=== PATIENT | female | born 1950 | race Caucasian/White ===

== ENCOUNTER 2016-04-09 09:11 | Emergency (ER) | payer BC ==
--- NOTE | 2016-04-09 09:29 | Emergency Department Record ---
History of Present Illness - General Chief Complaint: Confusion Stated Complaint: CONFUSION Time Seen by Provider: 04/09/16 09:22 Source: Patient, Family Mode of Arrival: Ambulatory Limitations: No limitations - History of Present Illness Initial Comments: 65 yo female presents with confusion that was noticed at work about 8:30am by the patient's on. 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 She has no recall of these conversations. No speech changes. No fever. No falls. No history of similar episodes in the past. She is unable to recall the date or her family doctor. Onset/Timin -: Minutes(s) Severity: Mild Consistency: Intermittent Associated Symptoms: Denies other symptoms - Outing Coma Scale Eye Response: (4) Open spontaneously Motor Response: (6) Obeys commands Verbal Response: (5) Oriented Kelsea Total: 15 - Symptoms of Stroke Onset of Symptoms Date: 04/09/16 Onset of Symptoms Time: 08:30 Symptom Onset Unknown: No Symptoms of stroke: Onset of Confusion, Unable to Think Clearly - Related Data Home Medications Medication Instructions Recorded Confirmed Last Taken Cholecalciferol (Vitamin D3) 2,000 unit PO DAILY 06/17/14 04/09/16 08/01/14 [Vitamin D3] Multivitamin [Multi-Vitamin Daily] 1 each PO DAILY 06/17/14 04/09/16 08/02/14 Allergies Allergy/AdvReac Type Severity Reaction Status Date / Time No Known Drug Allergies Allergy Verified 04/09/16 09:24 Travel Screening - Travel/Exposure Within Last 30 Days Have you traveled within the last 30 days?: No Review of Systems Constitutional: Denies: Chills, Fever, Malaise, Night sweats, Weakness Eyes: Denies: Eye discharge, Eye pain, Photophobia, Vision change ENT: Denies: Congestion, Dental pain, Ear pain, Epistaxis, Throat pain Respiratory: Denies: Cough, Dyspnea, Hemoptysis, Stridor, Wheezes Cardiovascular: Denies: Chest pain, Palpitations, Syncope Endocrine: Denies: Fatigue Gastrointestinal: Denies: Abdominal pain, Diarrhea, Nausea, Vomiting Genitourinary: Denies: Dysuria, Retention, Urgency Musculoskeletal: Denies: Arthralgia, Back pain, Joint swelling, Myalgia, Neck pain Skin: Denies: Bruising, Change in color, Rash Neurological: Reports: Confusion. Denies: Abnormal gait, Headache, Numbness, Paresthesias, Seizure, Tingling, Tremors, Vertigo, Weakness Psychiatric: Denies: Anxiety Hematological/Lymphatic: Denies: Blood Clots, Easy bleeding, Easy bruising, Swollen glands Physical Exam - General General Appearance: Alert, Cooperative, No acute distress Limitations: Altered mental status - Head Head exam: Atraumatic, Normocephalic, Normal inspection - Eye Eye exam: Normal appearance, PERRL. negative: Conjunctival injection, Scleral icterus - ENT ENT exam: Normal exam, Mucous membranes moist, TM's normal bilaterally Ear exam: Normal external inspection. negative: External canal tenderness Nasal Exam: Normal inspection. negative: Discharge, Sinus tenderness Mouth exam: Normal external inspection, Tongue normal Teeth exam: Normal inspection. negative: Dental caries Throat exam: Normal inspection. negative: Tonsillar erythema, Tonsillar exudate - Neck Neck exam: Normal inspection, Full ROM. negative: Lymphadenopathy, Meningismus , Tenderness - Respiratory Respiratory exam: Normal lung sounds bilaterally. negative: Respiratory distress - Cardiovascular Cardiovascular Exam: Regular rate, Normal rhythm, Normal heart sounds Peripheral Pulses: 2+: Radial (R), Radial (L) - GI/Abdominal GI/Abdominal exam: Soft - Rectal Rectal exam: Deferred - exam: Deferred - Extremities Extremities exam: Normal inspection, Full ROM, Normal capillary refill. negative: Tenderness - Back Back exam: Reports: Normal inspection, Full ROM. Denies: Muscle spasm, Rash noted, Tenderness - Neurological Neurological exam: Alert, CN II-XII intact, Normal gait, Reflexes normal. negative: Motor sensory deficit, Oriented X3 (Oriented to name and hospial only. Not to time, date or year. Unable to guess) - Psychiatric Psychiatric exam: Normal affect, Normal mood. negative: Anxious, Depressed - Skin Skin exam: Dry, Intact, Normal color, Warm Stroke Assessment - NIH Stroke Scale 1a. Level of Consciousness: (0) Alert 1b. LOC Questions: (1) Answers 1 Question Correctly 1c. LOC Commands: (0) Performs Tasks Correctly 2. Best Gaze: (0) Normal 3. Visual: (0) No Visual Loss 4. Facial Palsy: (0) Normal Symmetrical Movement 5a. Motor Arm Left: (0) No Drift 5b. Motor Arm Right: (0) No Drift 6a. Motor Leg Left: (0) No Drift 6b. Motor Leg Right: (0) No Drift 7. Limb Ataxia: (0) Absent 8. Sensory: (0) Normal 9. Best Language: (0) No Aphasia 10. Dysarthria: (0) Normal 11. Extinction/Inattention: (0) No Abnormality NIH Stoke Scale Total: 1 NIH Stroke Scale Date: 04/09/16 NIH Stroke Scale Time: 09:28 Course Vital Signs 04/09/16 09:13 Temperature 97.7 F Pulse Rate 90 Respiratory 18 Rate Blood Pressure 156/77 Pulse Ox 99 - Reevaluation(s) Reevaluation #1: I rechecked the patient She could not recall 3 items I requested her to remember She did not recall meeting me or my examination. I was completely unfamiliar to her Her is now here. She recalls her , year they got . She does not recall breakfast that occurred at 5-5:30am She does not recall her morning conversion with her that occurred 5-5: 50am She does not recall her birthday but she recalls she was born in [place]. 04/09/16 09:40 Reevaluation #2: Recheck. No change in condition upon return from CT The patient is oriented to her name and but did not recall meeting me twice during this visit I SW the radiologist. No acute mass or hemorrhage. Mild small vessel disease. I explained that a neurology consult was recommended. [facility] was contacted. 04/09/16 09:56 Reevaluation #3: The labs were reviewed Sodium is 130. No acute changes. Dr Dowell is the stroke attending per [facility]. 04/09/16 10:00 Reevaluation #4: Dr Austin of the ED and Dr Dowell or stroke accept the patient for ED to ED transfer for emergency consult Dr Dowell recommends aspirin 04/09/16 10:04 Reevaluation #5: EKG 1001 NSR rate 71, intervals normal, axis normal, ST normal. improved from the prior. 04/09/16 10:10 ETOH is 0.000 04/09/16 10:12 Medical Decision Making - Lab Data Result diagrams: 04/09/16 09:30 04/09/16 09:30 Disposition Disposition: Transfer Clinical Impression: Acute confusion, Amnesia Disposition: Acute Care Hospital Transfer Transfer To: [facility] Reason For Transfer: Acute neurologic changes, amnesia Accepting Physician: Dr Dowell Time Discussed w/Accepting Physician: 10:00 Condition: (2) Stable Forms: Patient Portal Access Time of Disposition: 10:00
[2016-04-09 09:40] LABS: BASO % 0.6 % (0-6); EOS % 0.6 % (0-6); GRAN % 71.5 % (47-80); HEMATOCRIT 42.6 % (35.0-47.0); HEMOGLOBIN 14.6 gm/dl (11.6-16.0); LYMPH % 17.3 % (16-45); MEAN CELL VOLUME 87.8 fl (81-97); MEAN CORPUSCULAR HEMOGLOBIN 30.1 pg (27-33); MEAN CORPUSCULAR HGB CONC 34.3 g/dl (32-36); MEAN PLATELET VOLUME 9.1 fl (7.4-10.4); PLATELET COUNT 338 K/uL (130-400); RED BLOOD COUNT 4.85 M/uL (3.80-5.40); RED CELL DISTRIBUTION WIDTH 14.4 % (11.5-14.5); WHITE BLOOD COUNT W/O DIFF 4.7 K/uL (4.2-12.2)
[2016-04-09 09:52] LABS: ALB/GLOB RATIO 1.6 (1.1-1.8); ALBUMIN 4.5 gm/dL (3.5-5.0); ALKALINE PHOSPHATASE 30 U/L (38-126); ALT/SGPT 63 U/L (9-52); ANION GAP 12.2 (7-16); AST/SGOT 28 U/L (14-36); BILIRUBIN,TOTAL 0.48 mg/dL (0.2-1.3); BLOOD UREA NITROGEN 13 mg/dL (7-17); CARBON DIOXIDE 25.8 mmol/L (22-30); CREATININE 0.6 mg/dL (0.52-1.04); EST GLOMERULAR FILTRATION RATE > 60 ml/min; GLUCOSE,RANDOM 113 mg/dL (70-110); TOTAL PROTEIN 7.3 gm/dL (6.3-8.2)
[2016-04-09 09:53] LABS: INR 0.99; PARTIAL THROMBOPLASTIN TIME 28.2 SECONDS (24.5-39.1); PROTHROMBIN TIME (PATIENT) 11.2 SECONDS (9.5-12.1)
[2016-04-09] MEDS ORDERED: ASPIRIN 325 MG TABLET PO ONE (10:06)
[2016-04-09 10:10] LABS: TROPONIN I < 0.012 ng/mL (0.00-0.034)
--- NOTE | 2016-04-12 10:56 | CT SCAN REPORT ---
EXAM: CT OF THE HEAD WITHOUT CONTRAST HISTORY: ACUTE MEMORY LOSS TODAY. TECHNIQUE: Routine noncontrast CT examination of the head was performed. Comparison: None. Hand dominance: Right. FINDINGS: The ventricles and subarachnoid spaces are normal in size for age. There is questionable minimal white matter lucency in the frontal parietal regions. No other area of abnormally increased or decreased attenuation is noted throughout the brain substance. No abnormal extraaxial fluid collection is seen. No asymmetric middle cerebral artery density visualized. No skull abnormality. The visualized paranasal sinuses and mastoid air cells are clear. Two nodular densities are noted in the high left parietal scalp measuring 6 mm each. These are nonspecific though likely sebaceous cysts. The orbits as visualized are unremarkable. IMPRESSION: 1. NO CT EVIDENCE OF ACUTE MAJOR VESSEL INFARCT, INTRACRANIAL HEMORRHAGE, NOR MASS. 2. EQUIVOCAL WHITE MATTER LUCENCIES IN THE FRONTAL PARIETAL REGIONS OF EACH CEREBRAL HEMISPHERE. THESE ARE NONSPECIFIC, BUT LIKELY AREAS OF CHRONIC SMALL VESSEL ISCHEMIA. 3. TWO SMALL HYPERDENSE NODULAR STRUCTURES IN THE LEFT PARIETAL SCALP HAVE A BENIGN APPEARANCE. THESE MAY REPRESENT SEBACEOUS CYSTS. JOB NUMBER: [id number] [facility]
== END 2016-04-09 10:20 | disposition short-term general hospital (02) ==
LOC: ER 09:11
DX: R41.0 Disorientation, unspecified (principal); R41.3 Other amnesia
CPT/HCPCS: 99285 ×2; 85025; 85730; 85610; 84484; 80053; 84443; 70450; 93005; 93010; G0480; 80320

== ENCOUNTER 2018-12-26 08:52 | Emergency (ER) | payer BC, MEDICARE ==
[2018-12-26] MEDS ORDERED: ACETAMINOPHEN 325 MG TAB PO ONE (09:10)
--- NOTE | 2018-12-26 09:42 | Emergency Department Record ---
History of Present Illness - General Chief Complaint: Fall Injury Stated Complaint: FALL INJURY Time Seen by Provider: 12/26/18 09:05 Source: Patient Mode of Arrival: Ambulatory Limitations: No limitations - History of Present Illness Initial Comments: The patient is her due to a slip and fall onto her R shoulder with pain in the shoulder and R hand. The patient denies any head injury, neck pain, CP, SOB, or AP. She has been ambulatory since the fall and denies any balance issues. She is having mild pain to the R shoulder and R hand. Complaint: Fall Onset/Timin -: Hour(s) Fall From: Standing When Fall Occurred: 1 hour [employer] Fall Witnessed: No Place Fall Occurred: Home Severity scale (1-10): 5 Associated Symptoms: Denies - [place] Coma Scale Eye Response: (4) Open spontaneously Motor Response: (6) Obeys commands Verbal Response: (5) Oriented Kelsea Total: 15 - Related Data Allergies Allergy/AdvReac Type Severity Reaction Status Date / Time No Known Drug Allergies Allergy Unverified 11/21/18 14:23 Travel Screening - Travel/Exposure Within Last 30 Days Have you traveled within the last 30 days?: No - Travel/Exposure Within Last Year Have you traveled outside the [place] in the last year?: No - Additonal Travel Details Have you been exposed to anyone with a communicable illness?: No - Travel Symptoms Symptom Screening: None Review of Systems Constitutional: Denies: Chills, Fever Eyes: Denies: Eye discharge ENT: Denies: Congestion Respiratory: Denies: Cough, Dyspnea Past Medical History - SOCIAL HISTORY Smoking Status: Former smoker Alcohol Use: None Drug Use: None - RESPIRATORY Hx Respiratory Disorders: No - CARDIOVASCULAR Hx Cardio Disorders: No - NEURO Hx Neuro Disorders: No - GI Hx GI Disorders: Yes Hx Reflux: Yes - Hx Genitourinary Disorders: No - ENDOCRINE Hx Endocrine Disorders: No - MUSCULOSKELETAL Hx Musculoskeletal Disorders: Yes Hx Osteoporosis: Yes - PSYCH Hx Psych Problems: Yes Hx Anxiety: Yes Hx Depression: Yes - HEMATOLOGY/ONCOLOGY Hx Hematology/Oncology Disorders: No Family Medical History Any Significant Family History?: No Family Hx Comment (NOT TO BE USED IN PLACE OF ITEMS BELOW): Mother- MS Hx Heart Disease: Father Physical Exam - General General Appearance: Alert, Oriented x3, Cooperative, No acute distress - Head Head exam: Atraumatic, Normocephalic, Normal inspection - Eye Eye exam: Normal appearance, PERRL - Neck Neck exam: Normal inspection, Full ROM. negative: Tenderness - Respiratory Respiratory exam: Normal lung sounds bilaterally. negative: Respiratory distress - Cardiovascular Cardiovascular Exam: Regular rate, Normal rhythm, Normal heart sounds - GI/Abdominal GI/Abdominal exam: Soft, Normal bowel sounds. negative: Tenderness - Extremities Extremities exam: Full ROM (The R shoulder, elbow, wrist and hand have full ROM with no difficulty or significant pain.), Tenderness (There is mild tenderness to the R anterior shoulder.), Other (The R hand has normal cap refill and blood flow. The dorsal R 4th and 5th fingers do feel slightly numb to light touch. The hand has normal ROM with no weakness.). negative: Normal inspection (There is a minor bruise to the R anterior shoulder.) - Neurological Neurological exam: Alert, Normal gait, Oriented X3. negative: Abnormal gait, Altered - Psychiatric Psychiatric exam: negative: Anxious Course Vital Signs 12/26/18 08:57 Temperature 97.8 F Pulse Rate 84 Respiratory 16 Rate Blood Pressure 130/77 Pulse Ox 100 - Reevaluation(s) Reevaluation #1: I did explain to the patient that her xrays are normal. She does have normal ROM of the R shoulder, elbow, wrist and R hand. The patient does have mild numbness to the dorsal R 4th and 5th fingers but normal motor function. I did explain to her that I believe she may have contused the area mildly and the numbness should resolve. She is to see her PCP next week for recheck if not better. 12/26/18 10:11 Medical Decision Making - Data Complexity MDM Data: X-Ray Ordered and/or Reviewed - Radiology Data Radiology results: Report reviewed (R shoulder and hand: Neg.) Disposition Disposition: Discharge Clinical Impression: Shoulder contusion Qualifiers: Encounter type: initial encounter Laterality: right Qualified Code(s): S40.011A - Contusion of right shoulder, initial encounter Disposition: Home, Self-Care Condition: (2) Stable Instructions: Shoulder Pain (ED) Additional Instructions: Please use TYlenol for pain and use ice to the R shoulder and hand. Please see your family doctor if not better in 1 week and return to the ER for any worsening symptoms. Forms: Patient Portal Access Time of Disposition: 10:13 Quality - Quality Measures Quality Measures: N/A - Blood Pressure Screening View Details: Yes Does Patient Have Any of the Following: No Blood Pressure Classification: Pre-Hypertensive BP Reading Systolic Measurement: 130 Diastolic Measurement: 77 Screening for High Blood Pressure: < Pre-Hypertensive BP, F/U Documented > [[id number]] Pre-Hypertensive Follow-up Interventions: Referral to alternative/primary care provider.
--- NOTE | 2018-12-26 09:58 | RADIOLOGY REPORT ---
EXAMINATION: Right Hand, Minimum Three Views EXAM DATE: 12/26/2018 9:40 AM TECHNIQUE: PA, lateral, and oblique INDICATION: trauma COMPARISON: None ENCOUNTER: Initial FINDINGS: There is no bone or joint abnormality. IMPRESSION: No acute osseous abnormality. Dictated by: Rebel Hawley DO on 12/26/2018 9:55 AM. .
--- NOTE | 2018-12-26 09:59 | RADIOLOGY REPORT ---
EXAMINATION: Right Shoulder, Complete Minimum Two Views EXAM DATE: 12/26/2018 9:40 AM TECHNIQUE: AP, Grashey, and axillary INDICATION: trauma COMPARISON: None ENCOUNTER: Initial FINDINGS: There is no bone or joint abnormality. Osteopenia. IMPRESSION: No acute osseous abnormality. Dictated by: Rebel Hawley DO on 12/26/2018 9:57 AM. .
== END 2018-12-26 10:21 | disposition home or self-care (01) ==
LOC: ER 08:52
DX: S40.011A Contusion of right shoulder, initial encounter (principal); R20.0 Anesthesia of skin; M79.641 Pain in right hand; W01.198A Fall on same level from slipping, tripping and stumbling with subsequent striking against other object, initial encounter; Y92.009 Unspecified place in unspecified non-institutional (private) residence as the place of occurrence of the external cause; F17.210 Nicotine dependence, cigarettes, uncomplicated
CPT/HCPCS: 99284